=== PATIENT | female | born 1985 | race Caucasian/White ===

== ENCOUNTER 2017-03-13 17:14 | Emergency (ER) | payer OTHER ==
[2017-03-13 18:10] VITALS: BP 118/75
--- NOTE | 2017-03-13 19:32 | UC ---
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 Pt states it is not painful, just "uncomfortable"."SHe noticed it today when she was trying on clothes with her sister. sister is a nurse and told her it's a hernia and she should have it checked out immediately. not painful no n/ v. has children. does "intense workouts" jujitsu, MMA etc. Here with her 6 y/o son Eugene. - History of Current Complaint Chief Complaint: UCGeneralIllness Time Seen by Provider: 03/13/17 19:21 Stated Complaint: LUMP ON ABDOMEN Hx Last Menstrual Period: pt on depo and states not getting a menses - Allergy/Home Medications Allergies/Adverse Reactions: Allergies Allergy/AdvReac Type Severity Reaction Status Date / Time Latex Allergy Rash Verified 03/13/17 18:10 Home Medications: Home Medications Medroxyprogesterone Acetate (A [Depo-Provera] 400 mg IM 03/13/17 [History] Review of Systems Constitutional: Negative Skin: Negative Eyes: Negative ENT: Negative Respiratory: Negative Cardiovascular: Negative Gastrointestinal: Other - abdominal lump Genitourinary: Negative Motor: Negative Neurovascular: Negative Musculoskeletal: Negative Neurological: Negative Psychological: Negative Is Patient Immunocompromised?: No All Other Systems Reviewed And Are Negative: Yes PMH/Surg Hx/FS Hx/Imm Hx Previously Healthy: Yes - Surgical History Surgical History: Yes Surgery Procedure, Year, and Place: CERVICAL SX, - Family History Known Family History: Positive: Hypertension - Social History Alcohol Use: Rare Substance Use Type: None Smoking Status (MU): Heavy Every Day Tobacco Smoker Type: Cigarettes Amount Used/How Often: 1/2 ppd Length of Time of Smoking/Using Tobacco: since age 19 Have You Smoked in the Last Year: Yes Physical Exam Triage Information Reviewed: Yes Appearance: Well-Appearing, No Pain Distress, Well-Nourished Vital Signs: Initial Vital Signs Temp 98.8 F 03/13/17 18:02 Pulse 72 03/13/17 18:02 Resp 14 03/13/17 18:02 BP 118/75 03/13/17 18:02 Pulse Ox 100 03/13/17 18:02 Eye Exam: Normal ENT Exam: Normal Respiratory Exam: Normal Respiratory: Positive: Lungs clear, Normal breath sounds Cardiovascular Exam: Normal Cardiovascular: Positive: RRR, No Murmur, Pulses Normal Abdomen Description: Positive: Nontender, No Organomegaly, Soft, Hernia @ - upper ventral seen only with bearing down. not tender, no. Negative: Distended , Guarding, Hepatomegaly, Pulsatile Mass Musculoskeletal Exam: Normal Neurological Exam: Normal Psychological Exam: Normal Skin Exam: Normal Course/Dx - Course Course Of Treatment: very minimal upper ventral hernia only seen with bearing down. not tender, color nml. reduces on its own. discussed that activity that increases abdominal pressure will worsen hernias. explained the physiology of hernias and red flag signs of increasing significant pain with vomiting and unreducible hernia. Having surgery has risks with mesh and scar tissue as well. so it is in her best interest to try to avoid worsening of hernia. discussing with a surgeon to discuss outcomes etc would be informative. - Differential Diagnoses - Skin Complaint Differential Diagnoses: Other - ventral hernia - Diagnoses Provider Diagnoses: mild reducible ventral hernia. Discharge - Discharge Plan Condition: Stable Disposition: HOME Patient Education Materials: Ventral Hernia (ED) Referrals: Margo Somers MD [Medical Doctor] - 4 Days Additional Instructions: We talked about warning signs of when to go to ER. A referral to a surgeon to discuss options would be a good idea as well.
== END 2017-03-13 19:40 | disposition home or self-care (01) ==
LOC: UCCORT 17:14
DX: K43.9 Ventral hernia without obstruction or gangrene (principal); Z72.0 Tobacco use
CPT/HCPCS: 99211; G0463